=== PATIENT | female | born 1960 | race Caucasian/White ===

== ENCOUNTER 2023-07-24 11:47 | Outpatient (CLI) | payer OTHER | END 2023-07-24 11:50 | disposition home or self-care (01) | LOC: SONOGRAMA 11:47 | PROVIDERS: ATTEND Pathology Anatomic Pathology & Clinical Pathology | DX: D34 Benign neoplasm of thyroid gland (principal); E04.9 Nontoxic goiter, unspecified ==

== ENCOUNTER 2025-05-02 13:39 | Day surgery (SDC) | payer OTHER ==
[2025-05-01 13:45] VITALS: BP 149/77
[~2025-05-02] VITALS: Ht 167.6 cm; Wt 77.1 kg
[~2025-05-02 13:39] MED LIST: LORAZEPAM1 MG PO; PROPANOLOL; TOPAMAX25 M1 PO
[2025-05-02] MEDS ORDERED: MORPHINE SULFATE 4 MG/ML VIAL IV ONE ×2 (18:30→19:00)
[2025-05-02] MEDS ORDERED: ONDANSETRON HCL 2 MG/ML VIAL IV ONE (20:00)
== END 2025-05-02 20:30 | disposition home or self-care (01) ==
LOC: CIR.AMB 13:39
PROVIDERS: ATTEND Surgery
DX: D05.11 Intraductal carcinoma in situ of right breast (principal); R59.0 Localized enlarged lymph nodes; Z88.2 Allergy status to sulfonamides; Z88.6 Allergy status to analgesic agent